=== PATIENT | male | born 2000 | race Caucasian/White ===

== ENCOUNTER 2022-08-13 19:03 | Emergency (ER) | payer BC ==
[2022-08-13 20:08] VITALS: RESP 16
[2022-08-13] MEDS ORDERED: IBUPROFEN 600 MG TAB PO STA (20:17)
[2022-08-13] MEDS ORDERED: ACETAMINOPHEN TAB 325 MG TAB PO STA (20:17)
--- NOTE | 2022-08-13 20:23 | ED ---
General Adult HPI - General Chief complaint: Upper Respiratory Infection Stated complaint: head injury Time Seen by Provider: 08/13/22 20:08 Source: patient, RN notes reviewed, old records reviewed Mode of arrival: ambulatory Limitations: no limitations - History of Present Illness Initial comments: 22-year-old well-appearing male presents ambulatory with complaints of frontal headache, chills and sore throat today. Patient states he also hit his head on a wall after chasing a cousin around yesterday at 3:00pm. No loss of consciousness. States not sure if he has the flu or if he has a concussion. Denies any nausea vomiting or diarrhea. States has history of hypertension. He is a nonsmoker. -: days(s) (1) Location: head (frontal) Severity scale (1-10): 6 Quality: aching Consistency: intermittent Associated Symptoms: fever/chills (chills), nausea/vomiting (no vomiting), other (sore throat) Treatments Prior to Arrival: none - Related Data Allergies Allergy/AdvReac Type Severity Reaction Status Date / Time No Known Allergies Allergy Verified 08/13/22 19:42 Review of Systems ROS Statement: Those systems with pertinent positive or pertinent negative responses have been documented in the HPI. ROS Other: All systems not noted in ROS Statement are negative. Past Medical History Past Medical History: No Reported History, Hypertension History of Any Multi-Drug Resistant Organisms: None Reported Past Surgical History: Adenoidectomy, Tonsillectomy Past Psychological History: No Psychological Hx Reported Smoking Status: Never smoker Past Alcohol Use History: Rare Past Drug Use History: None Reported General Exam Limitations: no limitations General appearance: alert, in no apparent distress Head exam: Present: atraumatic, normocephalic, normal inspection Eye exam: Present: normal appearance, PERRL, EOMI. Absent: scleral icterus, conjunctival injection, periorbital swelling, periorbital tenderness ENT exam: Present: normal exam, normal oropharynx, mucous membranes moist Neck exam: Present: normal inspection, full ROM. Absent: tenderness, meningismus, lymphadenopathy Respiratory exam: Present: normal lung sounds bilaterally. Absent: respiratory distress, wheezes, rales, rhonchi, stridor, chest wall tenderness, accessory muscle use Cardiovascular Exam: Present: tachycardia Extremities exam: Present: normal capillary refill Back exam: Present: normal inspection, full ROM. Absent: tenderness, CVA tenderness (R), CVA tenderness (L), rash noted Neurological exam: Present: alert, oriented X3, normal gait Psychiatric exam: Present: normal affect, normal mood Skin exam: Present: warm, dry, normal color. Absent: cyanosis, diaphoretic, pallor Course Vital Signs 08/13/22 08/13/22 08/13/22 19:38 20:07 21:58 Temperature 99.9 F H 99 F 98.9 F Pulse Rate 117 H 99 72 Respiratory 20 16 16 Rate Blood Pressure 153/89 150/89 122/84 O2 Sat by Pulse 96 99 100 Oximetry Medical Decision Making - Medical Decision Making Well-appearing 22-year-old male presents to the emergency room after hitting his head yesterday afternoon on a sloped ceiling. Woke up today with a headache, sore throat and body aches. On exam, patient has no focal neurological deficits. There is no evidence of a frontal hematoma where he hit his head. He is ambulatory with steady gait. Influenza swab was negative. Strep negative. Denies any abdominal pain. His symptoms have resolved with tylenol and motrin. Vital signs are stable. Symptoms are consistent with a viral illness. He'll be discharged home to follow up with his primary care doctor. He was recommended to take vitamin C, vitamin D and zinc daily. Return to the emergency room with any new or concerning symptoms. Case was discussed with Dr. Bates. - Lab Data Lab Results 08/13/22 08/13/22 Range/Units 19:44 20:38 Influenza Type A RNA Not Detected (Not Detectd) Influenza Type B (PCR) Not Detected (Not Detectd) Group A Strep (PCR) NOT DETECTED (Not Detectd) Disposition Clinical Impression: Sore throat Disposition: HOME SELF-CARE Condition: Good Instructions (If sedation given, give patient instructions): Pharyngitis (ED), Upper Respiratory Infection (ED) Additional Instructions: Take vitamin C, vitamin D and Zinc to improve immune health. Increase your fluid intake. Tylenol and Motrin as needed for any discomfort. Follow-up with your primary care doctor within the next week for reevaluation. Return to the emergency room with any new or concerning symptoms. Is patient prescribed a controlled substance at d/c from ED?: No Referrals: Maryjo Vivar MD [Primary Care Provider] - 1-2 days Time of Disposition: :55
[2022-08-13 22:01] VITALS: BP 122/84; PULSE 72; TEMP 98.9
== END 2022-08-13 22:03 | disposition home or self-care (01) ==
LOC: EC 19:03
DX: J02.9 Acute pharyngitis, unspecified (principal); I10 Essential (primary) hypertension
CPT/HCPCS: 87502; 87651; 99283